=== PATIENT | male | born 1990 | race American Indian/Alaskan Native ===

== ENCOUNTER 2022-01-30 10:39 | Emergency (ER) | payer SELFPAY ==
[2022-01-30] MEDS ORDERED: ASPIRIN 325 MG TAB PO ONE (11:09)
[2022-01-30 11:39] LABS: Basophils # (Auto) 0.1 K/mm3 (0.0-0.1); Basophils % (Auto) 0.8 % (0.0-1.8); Eosinophils # (Auto) 0.2 K/mm3 (0.0-0.4); Eosinophils % (Auto) 2.5 % (0.0-4.3); Hematocrit 40.2 % (35.5-45.6); Hemoglobin 13.1 gm/dl (11.8-15.2); Lymphocytes # (Auto) 1.9 K/mm3 (1.2-5.4); Lymphocytes % (Auto) 21.7 % (13.4-35.0); Mean Corpuscular HGB Conc 33 % (32-34); Mean Corpuscular Volume 83 fl (84-94); Monocytes # (Auto) 0.8 K/mm3 (0.0-0.8); Monocytes % (Auto) 8.9 % (0.0-7.3); Platelet Count 249 K/mm3 (140-440); Red Blood Count 4.84 M/mm3 (3.65-5.03); Red Cell Distribution Width 13.7 % (13.2-15.2)
--- NOTE | 2022-01-30 11:50 | XRay Report ---
CHEST 2 VIEWS INDICATION / CLINICAL INFORMATION: chest pain. FINDINGS: SUPPORT DEVICES: None. HEART / MEDIASTINUM: No significant abnormality. LUNGS / PLEURA: No significant pulmonary or pleural abnormality. No pneumothorax. ADDITIONAL FINDINGS: No significant additional findings. IMPRESSION: 1. No acute findings. Signer Name: Jacky Cassidy MD Signed: 01/30/2022 11:45 AM Workstation Name: [id number]
[2022-01-30 12:05] LABS: Alanine Aminotransferase 15 units/L (7-56); Albumin 4.3 g/dL (3.9-5); BUN/Creatinine Ratio 10; Blood Urea Nitrogen 8 mg/dL (9-20); Calcium 9.1 mg/dL (8.4-10.2); Hemolysis Index 3
--- NOTE | 2022-01-30 16:22 | Emergency Department Report ---
ED Chest Pain HPI - General Chief Complaint: Chest Pain Stated Complaint: CHEST PAIN Time Seen by Provider: 01/30/22 14:51 Source: patient Mode of arrival: Ambulatory Limitations: No Limitations - History of Present Illness Initial Comments: 31-year-old male with history of hypertension [medication noncompliant] and TIA [2017] presents to the emergency department with chest pain. Patient reports pain in the middle of his chest that does not radiate started 2 days ago, states is intermittent improves with rest but not worsened or triggered by anything. No cough cold congestion, states that whenever the chest pain comes could last for anywhere for hours, with palpitations and sometimes sweats. He denies dizziness headache vision changes, no cough cold congestion, no orthopnea, he just denies history of MIs or cardiac disease, he denies weakness of the extremities, he denies any drug use. Smokes cigarettes. Otherwise no prior cardiac history, no family history of cardiac disease or sudden history of PEs or DVTs MD Complaint: chest pain -: days(s) (2) Onset: during rest, during exertion Pain Location: substernal Pain Radiation: none Severity: Unable to Determine Severity scale (0 -10): 7 Quality: sharp Consistency: intermittent Improves With: rest Worsens With: nothing re: denies: nausea Other Symptoms: denies: cough, fever, syncope, palpitations Treatments Prior to Arrival: none - Related Data Allergies Allergy/AdvReac Type Severity Reaction Status Date / Time No Known Allergies Allergy Unverified 01/30/22 11:03 Heart Score - HEART Score History: Slightly suspicious EKG: Non-specific Age: < 45 Risk factors: No known risk factors Troponin: < normal limit HEART Score: 1 - EKG Read Time Time EKG Completed: 10:50 EKG Read Time: 10:55 - Critical Actions Critical Actions: 0-3 pts:0.9-1.7%risk of adverse cardiac event.Candidate for discharge ED Review of Systems ROS: Stated complaint: CHEST PAIN Other details as noted in HPI Comment: All other systems reviewed and negative Constitutional: denies: chills, diaphoresis, fever Respiratory: denies: cough, orthopnea, SOB with exertion, wheezing Cardiovascular: chest pain, palpitations. denies: dyspnea on exertion, orthopnea, edema, paroxysmal nocturnal dyspnea Endocrine: denies: intolerance to cold, intolerance to heat Gastrointestinal: denies: abdominal pain, nausea, vomiting, diarrhea Musculoskeletal: denies: back pain, joint swelling, arthralgia Skin: denies: change in color Neurological: other (d). denies: headache, weakness, numbness, paresthesias, abnormal gait, vertigo Psychiatric: denies: anxiety, depression ED Past Medical Hx - Past Medical History Previous Medical History?: Yes Hx Hypertension: Yes (noncomplaint with b/p meds) - Surgical History Past Surgical History?: No ED Physical Exam - General Limitations: No Limitations General appearance: alert, in no apparent distress - Head Head exam: Present: atraumatic, normocephalic - Eye Eye exam: Present: normal appearance, PERRL - ENT ENT exam: Present: normal exam, normal orophraynx - Neck Neck exam: Present: normal inspection. Absent: tenderness - Respiratory Respiratory exam: Present: normal lung sounds bilaterally. Absent: respiratory distress, wheezes, chest wall tenderness - Cardiovascular Cardiovascular Exam: Present: regular rate, normal rhythm, normal heart sounds - GI/Abdominal GI/Abdominal exam: Present: soft, normal bowel sounds. Absent: distended, tenderness, rebound - Extremities Exam Extremities exam: Present: normal inspection, full ROM, normal capillary refill. Absent: pedal edema - Back Exam Back exam: Present: normal inspection, full ROM. Absent: tenderness - Neurological Exam Neurological exam: Present: alert, oriented X3, CN II-XII intact, normal gait - Psychiatric Psychiatric exam: Present: normal affect, normal mood. Absent: anxious, flat affect, homicidal ideation, suicidal ideation - Skin Skin exam: Present: warm, dry, intact, normal color. Absent: cyanosis, diaphoretic ED Course Vital Signs 01/30/22 01/30/22 01/30/22 11:07 15:19 18:31 Temperature 98.2 F 98.9 F 98.2 F Pulse Rate 68 76 Respiratory 20 14 16 Rate Blood Pressure 146/89 133/81 [Right] O2 Sat by Pulse 99 100 98 Oximetry ED Medical Decision Making - Lab Data Result diagrams: 01/30/22 11:18 01/30/22 11:18 - EKG Data When compared to previous EKG there are: no significant change, previous EKG unavailable Interpretation: no acute changes, normal EKG 01/30/22 19:26 Normal sinus rhythm, ST abnormality in leads V3 possible earlyl, no acute STEMI - Medical Decision Making 31-year-old male with history of hypertension [medication noncompliant] and TIA [2017] presents to the emergency department with chest pain. Patient reports pain in the middle of his chest that does not radiate started 2 days ago, states is intermittent improves with rest but not worsened or triggered by anything. No cough cold congestion, states that whenever the chest pain comes could last for anywhere for hours, with palpitations and sometimes sweats. He denies dizziness headache vision changes, no cough cold congestion, no orthopnea, he just denies history of MIs or cardiac disease, he denies weakness of the extremities, he denies any drug use. Smokes cigarettes. Otherwise no prior cardiac history, no family history of cardiac disease or sudden history of PEs or DVTs 's chest x-ray negative for effusions, infiltrates, EKG is nonischemic, serial troponin has been negative, vital signs remained stable, no swelling of the extremities, no shortness of breath, his Wells score is low, his heart score is also low 1. Patient has remained stable throughout ED course, symptoms can be followed up outpatient with cardiology for further evaluation and testing. Discussed all of this with patient including plan for follow-up with understand Critical care attestation.: If time is entered above; I have spent that time in minutes in the direct care o f this critically ill patient, excluding procedure time. ED Disposition Clinical Impression: Atypical chest pain Disposition: 01 HOME / SELF CARE / HOMELESS Is pt being admited?: No Does the pt Need Aspirin: No Condition: Stable Instructions: Nonspecific Chest Pain, Adult, Chest Wall Pain Referrals: ANNA EVANS MD [Primary Care Provider] - 3-5 Days BUFFY LYONS MD [Staff Physician] - 3-5 Days
[2022-01-30 18:32] VITALS: BP 133/81
--- NOTE | 2022-01-31 09:47 | Electrocardiograph Report ---
[facility] Test Date: 2022-01-30 Test Time: 10:50:40 Pat Name: YADIEL TUCKER Department: Room: Gender: M Multimedia Production Assistant: MICHAEL : 1990 Requested By: ED DOC Order Number: [id number] Reading MD: Antoni Blackman Measurements Intervals [place] Rate: 66 P: 43 [place]: 151 QRS: 78 QRSD: 90 T: 59 QT: 409 QTc: 429 Interpretive Statements Sinus rhythm ST elev, probable normal early repol pattern No previous ECG available for comparison Electronically Signed On 01-31-2022 9:47:21 EDT by Antoni Blackman
--- NOTE | 2022-01-31 09:48 | Electrocardiograph Report ---
[facility] Test Date: 2022-01-30 Test Time: 18:21:13 Pat Name: YADIEL TUCKER Department: Room: Gender: M Tray Filler: CHARLEEN : 1990 Requested By: BRADY NGUYEN Order Number: [id number] Reading MD: Antoni Blackman Measurements Intervals [place] Rate: 60 P: 80 [place]: 95 QRS: 87 QRSD: 102 T: 59 QT: 426 QTc: 426 Interpretive Statements Sinus rhythm ST elev, probable normal early repol pattern Compared to ECG 01/30/2022 10:50:40 No significant changes Electronically Signed On 01-31-2022 9:47:50 EDT by Antoni Blackman
== END 2022-01-30 18:30 | disposition home or self-care (01) ==
LOC: ED 10:39
DX: R07.9 Chest pain, unspecified (principal); I10 Essential (primary) hypertension
CPT/HCPCS: 36415; 71046; 80053; 84484; 85025; 93005; 99284